=== PATIENT | male | born 1985 | race Caucasian/White ===

== ENCOUNTER 2022-01-01 18:50 | Emergency (ER) | payer BC ==
[2022-01-01 20:17] LABS: HEMOGLOBIN 14.7 gm/dl (14.0-17.5); RED BLOOD COUNT 4.8 M/UL (4.20-5.50); WHITE BLOOD COUNT 5.9 K/UL (4.5-11.0)
[2022-01-01 20:45] LABS: BUN/CREATININE RATIO 14 (0-10)
== END 2022-01-01 20:56 | disposition home or self-care (01) ==
LOC: ER1 18:50
PROVIDERS: Student in an Organized Health Care Education/Training Program
DX: R07.9 Chest pain, unspecified (principal); R06.02 Shortness of breath
CPT/HCPCS: 71045; 80053; 82550; 82553; 84484; 85025; 93005; 99285